=== PATIENT | male | born 1935 | race Caucasian/White ===

== ENCOUNTER 2017-05-05 23:28 | Observation (INO) | payer MEDICARE ==
[~2017-05-05] VITALS: Ht 190.5 cm; Wt 100.0 kg
[2017-05-06 00:40] LABS: BASOPHILS 0.2 % (0-2); EOSINOPHILS 0 % (0-7); HEMATOCRIT 42.8 % (42.0-54.0); HEMOGLOBIN 14.2 g/dL (13.5-17.5); IMMATURE GRANULOCYTES 0.4 % (0-5); LYMPHOCYTES 10.1 % (15-50); MCH 30.5 pg (26.0-34.0); MCHC 33.2 g/dL (31.0-37.0); MEAN PLATELET VOLUME 10.8 fL (7.4-10.4); MONOCYTES 6.5 % (2-11); NEUTROPHILS 82.8 % (40-80); PLATELET COUNT 248 10x3/uL (130-400); RBC 4.65 10x6/uL (4.20-6.10); RDW 14.1 % (11.5-14.5); WBC 11.2 10x3/uL (4.8-10.8)
[2017-05-06 00:42] LABS: ALBUMIN 3.6 g/dL (3.4-5.0); ANION GAP 14.8 mmol/L (8-16); BILIRUBIN - TOTAL 0.46 mg/dL (0.2-1.3); CALCIUM 8.6 mg/dL (8.5-10.1); CARBON DIOXIDE 24.6 mmol/L (21.0-32.0); CREATININE - SERUM 2.2 mg/dL (0.6-1.3); POTASSIUM - SERUM 4.4 mmol/L (3.5-5.1); PROTEIN - SERUM 7.8 g/dL (6.4-8.2)
--- NOTE | 2017-05-06 07:55 | NUR ---
RECIEVED TO ROOM 2218 FROM ER VIA WC. FAMILY AT BEDSIDE. IV TO L FA PATENT. NS INFUSING AT 100 CC/HR VIA PUMP.
[2017-05-06] MEDS ORDERED: LISINOPRIL2.5 MG PO ×2 (07:57)
[2017-05-06] MEDS ORDERED: PROTONIX40 MG PO (07:57)
[2017-05-06] MEDS ORDERED: BETAPACE 120 M120 MG PO (07:58)
[2017-05-06] MEDS ORDERED: BAYER CHEWABLE81 MG PO (07:58)
[2017-05-06 08:04] VITALS: BP 136/85; Ht 190.5 cm; Wt 100.0 kg
[2017-05-06 09:52] VITALS: BP 158/83
[2017-05-06 09:57] VITALS: BP 136/85
--- NOTE | 2017-05-06 10:24 | NUR ---
GARBAGE MAN SHOWING SR 72 PER TECH. DENIES ANY NEEDS AT THIS TIME.
--- NOTE | 2017-05-06 11:00 | NUR ---
NO CHANGES NOTED AT THIS TIME. RESTING QUIELTY IN BED. SON AT BEDSIDE.
[2017-05-06 13:07] VITALS: BP 109/65
[2017-05-06 14:04] LABS: ANION GAP 11.6 mmol/L (8-16); CALCIUM 8.4 mg/dL (8.5-10.1); CARBON DIOXIDE 25.5 mmol/L (21.0-32.0); POTASSIUM - SERUM 4.1 mmol/L (3.5-5.1)
[2017-05-06 14:15] LABS: CREATININE - SERUM 1.4 mg/dL (0.6-1.3)
--- NOTE | 2017-05-06 14:25 | NUR ---
LABWORK RESULTS CALLED TO DR BANKS.
--- NOTE | 2017-05-06 14:30 | NUR ---
DR BANKS WANTING TO KNOW ABOUT PATIENT'S GAIT WITH PHYSICAL THERAPY. CALLED AND SPOKE WITH DR BANKS'S NURSE ABOUT PT NOTE. DR BANKS WILL CALL BACK WITH ORDERS. FAMILY AND PATIENT NOTIFIED. VOICED UNDERSTANDING.
--- NOTE | 2017-05-06 14:59 | HP ---
PATIENT: ASUNCION ARIZMENDI MEDICAL RECORD: [id number] ACCOUNT: [id number] LOCATION:D.MS [id number] : 35 ADMISSION DATE: 05/06/17 HISTORY AND PHYSICAL EXAMINATION DATE OF ADMISSION: 05/05/2017 CHIEF COMPLAINT: Syncope. HISTORY OF PRESENT ILLNESS: This is an 81-year-old white male, who I have seen in the office about 2 years ago, has history of anxiety, reflux, atrial fibrillation with pacemaker, followed by Dr. Kaye. He reportedly was working outside most of the day yesterday, he was going to go get in his truck and the next thing he knows he wakes up on the ground beside the parked car and has had a syncopal episode. He was not sure how long he was out. He was found by family. They checked his blood pressure and his systolic pressure was in the 80s. He has not had anything to eat or drink all day. He was brought to the ER. His blood pressure was 89/56. He denied any chest pain or shortness of breath. No nausea or vomiting. His BUN and creatinine were 37 and 2.2 and not really sure what his baseline has been in the last couple of years because he has not been in my office. He was assigned to observation on telemetry for syncopal episode, most likely due to dehydration. PAST MEDICAL AND SURGICAL HISTORY: 1. Atrial fibrillation/sick sinus syndrome with pacemaker. 2. 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 3. Anxiety. PAST SURGICAL HISTORY: Cataract repair and pacemaker placement. ALLERGIES: None known. HOME MEDICATIONS: Lisinopril 2.5 mg twice a day, sotalol 80 mg twice a day and Protonix 40 mg once a day. SOCIAL HISTORY: Retired, lives alone. FAMILY HISTORY: No diabetes or hypertension. REVIEW OF SYSTEMS: GENERAL: Denies major weight changes. HEENT: No particular sinus or allergy problems. RESPIRATORY: No history of asthma or emphysema. CARDIAC: See above history, followed by Dr. Kaye with atrial fibrillation and sick sinus syndrome. GASTROINTESTINAL: Has reflux followed by Dr. Romo. GENITOURINARY: No significant problems there. MUSCULOSKELETAL: No significant joint aches and pains. PSYCHIATRIC: He has anxiety. NEUROLOGIC: No migraine headaches. PHYSICAL EXAMINATION: VITAL SIGNS: In the ER, temperature is 98.0, pulse 53, respirations 18, blood pressure was 89/56, currently he is 97.5, pulse 59, respirations 20, blood pressure is up to 136/85 after getting IV fluids. He is awake, alert, does not HISTORY AND PHYSICAL [id number] ASUNCION ARIZMENDI appear in acute distress. HEENT: Grossly within normal limits. NECK: Supple. No JVD or bruit. HEART: Paced rhythm is regular. LUNGS: Fairly clear. ABDOMEN: Soft, flat, nontender. EXTREMITIES: Trace edema on the right lower extremity over the left. NEUROLOGIC: Grossly intact. LABORATORY DATA: EKG shows paced rhythm. CBC with a white count of 11,200, hemoglobin of 14.2 and hematocrit 42.8. Basic metabolic panel is all okay except for BUN 37 and creatinine 2.2. AST is 53 with normal being less than 45. ASSESSMENT: 1. Syncopal episode, most likely due to dehydration. 2. Sick sinus syndrome with pacemaker. 3. Reflux. PLAN: We will continue IV fluids. We will have physical therapy walk him today. We will repeat a BMP around lunchtime if he is feeling better and vital signs were all stable, hopefully discharged home later today. TRANSINT:[id number] Voice Confirmation ID: [id number] DOCUMENT ID: [id number] JAYA BANKS MD at 1459 CC: [id number] DICTATION DATE: 05/06/17840 ELECTROPHYSIOLOGY TECHNICIAN: 05/06/17 1003 ADM IN [facility] [address] [place] [address]
--- NOTE | 2017-05-06 15:15 | NUR ---
NOTIFIED BY DAUGHTER THAT PATIENT JUST HAD 3 LOOSE STOOLS. DAUGHTER WANTING A MEDICATION TO BE GIVEN SO HE WON'T BE HAVING DIARRHEA WHEN SHE TAKES HIM HOME. MESSAGE LEFT WITH DR BANKS'S NURSE REGARDING FAMILY REQUEST. STATES SHE WILL NOTIFY DR BANKS AND RETURN CALL WITH ORDERS IF NECESSARY.
--- NOTE | 2017-05-06 17:26 | NUR ---
DISCHARGE TEACHING GIVEN TO PATIENT AND FAMILY. IV REMOVED. CATHETER TIP INTACT. RIM TECHNICIAN REMOVED AND SENT BACK TO MONITOR STATION. WILL DC HOME AFTER EATING DINNER. FAMILY AT BEDSIDE.
--- NOTE | 2017-05-06 17:50 | NUR ---
DC'D HOME WITH FAMILY. ESCORTED TO VEHICLE VIA WC WITH BELONGINGS.
== END 2017-05-06 17:50 | disposition home or self-care (01) ==
LOC: D.ER 23:28 → OBSVTIME 05-06 07:11 → D.MS 05-06 07:11
PROVIDERS: Family Medicine; ADMIT Family Medicine
DX: E86.0 Dehydration (principal); I48.91 Unspecified atrial fibrillation; Z95.0 Presence of cardiac pacemaker; K21.9 Gastro-esophageal reflux disease without esophagitis; F41.9 Anxiety disorder, unspecified

== ENCOUNTER → 2017-11-06 12:21 | Outpatient (CLI) | payer OTHER ==
[2017-05-06 08:04] VITALS: BMI 27.5
[~2017-11-06 12:21] MED LIST: BAYER CHEWABLE81 MG PO; BETAPACE 120 M120 MG PO; LISINOPRIL2.5 MG PO; PROTONIX40 MG PO
== END | disposition home or self-care (01) ==
LOC: D.CT 12:21
DX: I70.213 Atherosclerosis of native arteries of extremities with intermittent claudication, bilateral legs (principal)

== ENCOUNTER 2017-11-13 07:54 | Outpatient (CLI) | payer OTHER ==
[~2017-11-13] VITALS: Ht 193 cm; Wt 100.0 kg
--- NOTE | ~2017-11-13 | HEMODYNAMI ---
PATIENT:ASUNCION ARIZMENDI MEDICAL RECORD: [id number] : 35 LOCATION:[facility] ADMISSION DATE: 11/13/17 Generatedon:11/13/201710:26 Patient name: ASUNCION ARIZMENDI Patient #: [id number] SSN: : 1935 Date of study: 11/13/2017 Page: Of Hemodynamic Procedure Report Patient Data Patient Demographics Procedure consent was obtained First Name: ASUNCION Gender: Male Last Name: KYLEIGH : 1935 Patient #: [id number] Age: 82 year(s) Race: Unknown Additional ID: [id number] Contact details [address]: [address] [place] [address] State: [place] City: [place] Zip code: [address] Past Medical History Allergies: No known allergies Admission Admission Data Admission Date: 11/13/2017 Admission Time: 7:54 Admit Source: Other Height (in.): 6.4 BSA: 0.39 (m2) Height (cm.): 16.26 BMI: 3844.91 (kg/m2) Weight (lbs.): 224 Weight (kg.): 101.6 Lab Results Lab Result Date: 11/13/2017 Lab Result Time: 0:00 Biochemistry Name Units Result Min Max BUN mg/dl 24 --(----)-* 7 18 Creatinine mg/dl 1.1 --(--*-)-- 0.6 1.3 CBC Name Units Result Min Max Hemoglobin g/dl 13.8 --(*---)-- 13.5 17.5 Procedure Procedure Types Cath Procedure Peripheral Cath Diagnostic Procedure Cath Peripheral Dpmbr-Ruasere-Txy-Off Procedure Description Procedure Date Procedure Date: 11/13/2017 Procedure Start Time: 10:17 Procedure End Time: 10:24 Procedure Staff Name Function Paramjit Kaye MD Performing Physician Mar Shin RT Monitor Adrian Pereira RT Scrub Hernandez Vick RN Nurse Procedure Data Cath Procedure Fluoroscopy Diagnostic fluoroscopy Total fluoroscopy Time: 0.2 time: 0.2 min min Diagnostic fluoroscopy Total fluoroscopy dose: 144 dose: 144 mGy mGy Contrast Material Contrast Material Type Amount (ml) Isovue 300 41 Entry Location Entry Primary Successful Side Size Upsize Upsize Entry Closure Succes sful Closure Location (Fr) 1 (Fr) 2 (Fr) Remarks Device Remarks Femoral Left 5 Fr Exoseal artery Estimated blood loss: 5 ml Diagnostic catheters Device Type Used For End Catheter Placement DIAGNOSTIC UF 5Fr Procedure catheter ([id number]) Procedure Complications No complications Procedure Medications Medication Administration Route Dosage 0.9% NaCl I.V. 100 ml/hr Oxygen NC 2 l/min Heparin Flush Bag added to field 2 bags (1000units/500ml NS) Lidocaine 2% added to field 20 Versed I.V. 1 mg Fentanyl I.V. 25 mcg Hemodynamics Rest BSA: 0.39 (m2) HGB: 13.8 (g/dl) O2 Consumption: Estimated: 43.03 (ml/min) O2 Con sumption indexed: Estimated:110.33 (ml/min/m) Heart Rate: 61 (bpm) Snapshots Pre Cath Intra NCS Post Cath Vital Signs Time Heart Resp SPO2 etCO2 NIBP (mmHg) Rhythm Pain Sedation Rate (ipm) (%) (mmHg) Status Level (bpm) 10:02:57 64 20 96 0 143/97(116) NSR 0 (11) 10(A) , No pain 10:07:41 60 20 96 34.8 142/96(114) NSR 0 (11) 10(A) , No pain 10:12:26 60 19 97 17.4 136/94(110) NSR 0 (11) 10(A) , No pain 10:17:11 59 14 95 0 127/83(110) NSR 0 (11) 9(A) , No pain 10:21:51 59 13 98 0 141/87(118) NSR 0 (11) 9(A) , No pain Medications Time Medication Route Dose Verified Delivered Reason Notes Effe ctiveness by by 10:06:56 0.9% NaCl I.V. 100 Hernandez Hernandez Per ml/hr Nicanor Vick physician RN RN 10:07:16 Oxygen NC 2 Hernandez Hernandez Per l/min Nicanor Vick physician RN RN 10:07:56 Heparin Flush added 2 Hernandez Hernandez used for Bag to bags Nicanor Vick procedure (1000units/500ml field RN RN NS) 10:08:10 Lidocaine 2% added 20ml Hernandez Hernandez for local to vial Nicanor Vick anesthetic field RN RN 10:12:14 Versed I.V. 1 mg Hernandez Hernandez for Lorigan Nicanor sedation RN RN 10:12:24 Fentanyl I.V. 25 Hernandez Hernandez for mcg Lorigan Nicanor sedation RN entry rep Log Time Note 9:55:23 Informed consent obtained and on chart 9:55:27 Admit Source: Other 9:55:41 Diagnostic Cath status Elective 9:55:42 Hernandez Vick RN sent for patient. Start room use. 9:55:43 Time tracking: Regular hours 9:56:14 Plan of Care:Hemodynamics will remain stable., Cardiac rhythm will remain stable., Comfort level will be maintained., Respiratory function will remain adequate., Patient/ family verbilizes understanding of procedure., Procedure tolerated without complication., Recovers from procedure without complications.. 9:57:14 H&P Date Dictated: 11/09/2017 Within 30 days and on chart., H&P Addendum completed by physician on day of procedure. (MUST COMPLETE FOR ALL OUTPATIENTS). 9:57:20 Patient received from Pre/Post Procedure Room to CCL 1 Alert and oriented. Tansferred to table in Supine position. 9:57:21 Warm blankets applied, and jw hugger turned on for patient comfort. 9:57:22 Correct patient and procedure confirmed by team. 9:57:22 ECG and BP/O2 sat monitors applied to patient. 10:02:05 Vital chart was started 10:06:56 0.9% NaCl 100 ml/hr I.V. was administered by Hernandez Vick RN; Per physician; 10:07:16 Oxygen 2 l/min NC was administered by Hernandez Vick RN; Per physician; 10:07:55 Baseline sample Acquired. 10:07:56 Heparin Flush Bag (1000units/500ml NS) 2 bags added to field was administered by Hernandez Vick RN; used for procedure; 10:08:04 Rhythm: sinus rhythm 10:08:05 Full Disclosure recording started 10:08:06 Pre-procedure instructions explained to patient. 10:08:07 Pre-op teaching completed and patient verbalized understanding. 10:08:10 Lidocaine 2% 20ml vial added to field was administered by Hernandez Vick RN; for local anesthetic; 10:08:11 Family in patients room. 10:08:18 Patient NPO since Midnight. 10:08:23 Patient allergic to No known allergies 10:08:25 Is the patient allergic to Iodine/contrast media? No. 10:08:28 Is patient on blood thinner?No 10:08:30 Patient diabetic? No. 10:08:32 Previous problem with sedation/anesthesia? No ? 10:08:33 Snore? No 10:08:40 Sleep apnea? No 10:08:41 Deviated septum? No 10:08:42 Opens mouth fully? Yes 10:08:43 Sticks out tongue? Yes 10:08:45 Airway obstruction? No ? 10:08:49 Dentures? Yes IN TIGHT 10:08:53 Pre procedure: left dorsailis pedis pulse 2+ Normal; easily identifiable; not easily obliterated 10:08:56 Patient pain scale 0/10 ?. 10:09:09 IV patent on arrival in right antecubital with 0.9% NaCl at [facility]. 10:09:35 Lab Result : BUN 24 mg/dl 10:09:35 Lab Result : Creatinine 1.1 mg/dl 10:09:35 Lab Result : Hemoglobin 13.8 g/dl 10:09:39 Lab results completed and on chart. 10:09:44 Bilateral groins area was prepped with chlora-prep and draped in sterile fashion 10:09:45 Alarms reviewed by R. N. 10:09:45 Sharps counted by scrub and verified by R.N. 10:10:23 Patient Height : 6.4 inches 10:10:26 Patient Weight : 224 lbs 10:10:40 Use device set CATH PACK 10:10:45 ACIST Syringe (83675) opened to sterile field. 10:10:46 ACIST Hand Control (05715) opened to sterile field. 10:10:46 ACIST Manifold (08555) opened to sterile field. 10:10:47 Medline Cath Pack ([id number]) opened to sterile field. 10:10:48 Bag Decanter (2001S) opened to sterile field. 10:10:49 DIAGNOSTIC WIRE .035 260cm J wire (478793) opened to sterile field. 10:10:54 SHEATH 5FR [place] ([id number]) opened to sterile field. 10::53 --------ALL STOP TIME OUT------ 10::53 Final Timeout: patient, procedure, and site verified with staff and physician. All members of the team are in agreement. 10:11:55 Bilateral groins site verified by team. 10:11:58 Physical assessment completed. ASA score P 2 - A patient with mild systemic disease as per Paramjit Kaye MD. 10:12:01 Sedation plan: IV Moderate Sedation Medication:Versed, Fentanyl 10:12:14 Versed 1 mg I.V. was administered by Hernandez Vick RN; for sedation; 10:12:24 Fentanyl 25 mcg I.V. was administered by Hernandez Vick RN; for sedation; 10:14:21 Zero performed for pressure channel P1 10:14:24 Zero performed for pressure channel P1 10:14:31 Zero performed for pressure channel P1 10:14:51 Zero performed for pressure channel P1 10:15:04 Zero performed for pressure channel P1 10:15:23 Zero performed for pressure channel P1 10:17:31 Procedure started. 10:17:56 Local anesthetic to left femerol artery with Lidocaine 2% by Paramjit Kaye MD.INITIAL ACCESS ONLY 10:18:00 A 5 Fr sheath was inserted into the Left Femoral artery 10:18:42 A DIAGNOSTIC UF 5Fr catheter ([id number]) was advanced over the wire and used for Procedure. 10:20:37 Right leg runoff performed. 10:20:39 Left leg runoff performed. 10:21:01 EXOSEAL 5Fr (EX500) opened to sterile field. 10:21:13 Catheter removed. 10:22:12 Sheath removed intact; hemostasis achieved with Exoseal to the Left Femoral artery. 10:22:15 Procedure ended.(Physican Out) 10:22:31 Fluoroscopy time 00.20 minutes. 10:22:37 Fluoroscopy dose: 144 mGy 10:22:37 Flurop Dose total: 144 10::42 Contrast amount:Isovue 300 41ml. 10:22:43 Sharps counted by scrub and verified by R.N. 10:22:48 Post-op/insertion site Left Femoral artery dressed using a 4 x 4 and Tegaderm. 10:23:02 Post left femerol artery:stable, soft, clean and dry 10:23:08 Post-procedure physical assessment completed. ASA score P 2 - A patient with mild systemic disease as per Paramjit Kaye MD. 10:23:13 Post procedure: left dorsailis pedis pulse 2+ Normal; easily identifiable; not easily obliterated. 10:23:15 Post procedure rhythm: unchanged. 10:23:17 Estimated blood loss: 5 ml 10:23:19 Post procedure instruction explained to patient.Patient verbalizes understanding. 10:23:19 Patient needs reinforcement of post procedure teaching. 10:24:36 Procedure and supply charges have been captured, reviewed, submitted and are correct. 10:24:39 Procedure Complication : No complications 10:24:41 Vital chart was stopped 10:24:43 See physician's report for complete and final results. 10:24:45 Report given to Pre/Post Procedure Room. 10:24:48 Patient transfered to Pre/Post Procedure Room with Bed. 10:24:51 Procedure ended. 10:24:51 Full Disclosure recording stopped 10:24:53 End room use (Document Last) Device Usage Item Name Manufacture Quantity Catalog Hospital Part Current Minimal L ot# / Number Charge Number Stock Stock Serial# Code ACIST Acist 1 [id number] [id number] 116308 446398 20 Syringe Medical (42413) Systems Inc ACIST Hand Acist 1 53215 963117 372243 282025 5 Control Medical (24634) Systems Inc ACIST Acist 1 74502 982268 990214 205570 5 Manifold Medical (43577) Systems Inc Medline Cardinal 1 [id number] 567366 72411 566921 5 Cath Pack Health ([id number]) Bag Microtek 1 740943 79434 073521 5 Decanter Medical Inc. () DIAGNOSTIC [address] [place] 1 205260 528509 802974 970565 30 WIRE .035 260cm J wire (583256) SHEATH 5FR Terumo 1 [id number] 043072 723339 214633 40 [place] (TXQ979) DIAGNOSTIC Cardinal 1 [id number] 952429 465395 619527 10 UF 5Fr Fruitfulll catheter (601109T4) EXOSEAL 5Fr Cardinal 1 EX500 454953 049138 378000 10 (EX500) Health Signature Audit [place] Stage Time Signature Unsigned Intra-Procedure 11/13/2017 Mar Shin 10:26:20 AM RT(R) Signatures Monitor : Mar Shin Signature : RT Date : Time : [address] [place] [address]
--- NOTE | ~2017-11-13 | OP ---
PATIENT NAME: ASUNCION ARIZMENDI MEDICAL RECORD: [id number] :35 LOCATION:D.CAT ADMISSION DATE: SURGEON: EMMETT MARS MD DATE OF OPERATION: 11/13/2017 PROCEDURES: 1. Aortofemoral runoff. 2. Abdominal aortography. INDICATION: Leg pain compatible with claudication. PROCEDURE IN DETAIL: After informed consent was obtained and after a detailed explanation of risks, benefits as well as alternative therapies, the patient elected to proceed with angiogram and aortofemoral runoff. The left femoral area was prepped and draped in normal sterile fashion. Left femoral artery was cannulated via modified Seldinger technique with placement of 6-Haitian sheath. All catheters exchanged through this sheath. FINDINGS: The abdominal aortography was performed. The catheter was pulled down for aortofemoral runoff. Abdominal aortography reveals no significant abdominal aortic disease. No dissection or aneurysm formation. No renal artery stenosis. RIGHT LEG: A. Iliac: The common internal and external iliacs have mild irregularities, but no flow-limiting stenosis. B. Femoral system: The common superficial and deep femoral have mild irregularities, but no flow-limiting stenosis. C. Popliteal and infrapopliteal vessels are widely patent with good 3-vessel runoff to the foot. LEFT LEG: A. Iliac: The common internal and external iliacs have mild irregularities, but no flow-limiting stenosis. B. Femoral system: The common superficial and deep femoral have mild irregularities, but no flow-limiting stenosis. C. Popliteal and infrapopliteal vessels are widely patent with good 3-vessel runoff to the foot. OVERALL IMPRESSION: No significant peripheral vascular disease is present. Leg pain is non-arterial vascular in etiology. TRANSINT:[id number] Voice Confirmation ID: [id number] DOCUMENT ID: [id number] EMMETT MARS MD CC: [id number] DICTATION DATE: 11/13/17 1025 INTERNATIONAL RELATIONS PROFESSOR: 11/13/17 1037 [facility] [address] [place] [address]
[2017-11-13] MEDS ORDERED: BUSPAR 15 MG TA15 MG PO (08:38)
[2017-11-13] MEDS ORDERED: NAPROXEN SODIU220 M1 PO (08:38)
[2017-11-13 08:45] VITALS: Ht 193 cm; Wt 100.0 kg
[2017-11-13 09:25] LABS: BASOPHILS 0.2 % (0-2); EOSINOPHILS 3.2 % (0-7); HEMATOCRIT 41.3 % (42.0-54.0); HEMOGLOBIN 13.8 g/dL (13.5-17.5); IMMATURE GRANULOCYTES 0.4 % (0-5); LYMPHOCYTES 29.9 % (15-50); MCH 30.8 pg (26.0-34.0); MCHC 33.4 g/dL (31.0-37.0); MCV 92.2 fL (80.0-100.0); MEAN PLATELET VOLUME 10.5 fL (7.4-10.4); MONOCYTES 5.4 % (2-11); NEUTROPHILS 60.9 % (40-80); PLATELET COUNT 200 10x3/uL (130-400); RBC 4.48 10x6/uL (4.20-6.10); RDW 13.8 % (11.5-14.5); WBC 5.7 10x3/uL (4.8-10.8)
[2017-11-13 09:37] LABS: ANION GAP 11.2 mmol/L (8-16); CALCIUM 8.5 mg/dL (8.5-10.1); CARBON DIOXIDE 26.3 mmol/L (21.0-32.0); CREATININE - SERUM 1.1 mg/dL (0.6-1.3); POTASSIUM - SERUM 4.5 mmol/L (3.5-5.1)
== END 2017-11-13 12:40 | disposition home or self-care (01) ==
LOC: D.CATH 07:54
PROVIDERS: Internal Medicine Interventional Cardiology
DX: I70.219 Atherosclerosis of native arteries of extremities with intermittent claudication, unspecified extremity (principal); I25.10 Atherosclerotic heart disease of native coronary artery without angina pectoris; I10 Essential (primary) hypertension; Z95.0 Presence of cardiac pacemaker; I49.5 Sick sinus syndrome; I48.0 Paroxysmal atrial fibrillation; Z01.812 Encounter for preprocedural laboratory examination